=== PATIENT | female | born 1985 | race Two or more races ===

== ENCOUNTER 2020-03-18 23:58 | Emergency (ER) | payer SELFPAY ==
[~2020-03-18] VITALS: Ht 170.2 cm; Wt 68.0 kg
[2020-03-19] MEDS ORDERED: Albuterol 90mcg Inhaler 8gm INH ONE (00:45)
--- NOTE | 2020-03-19 00:45 | Emergency Room Report ---
History of Present Illness General Chief Complaint: Medical Clearance Source: Patient Present Illness HPI Disclaimer: Please note that this report is being documented using [employer] technology. This can lead to erroneous entry secondary to incorrect interpretation by the dictating instrument. HPI: 34-year-old female history of asthma presents for medical clearance prior to booking. She is reporting difficulty breathing. States she has chronic asthma and does not have her inhaler with her. She is requesting a temporary inhaler. Denies cough, fever or other complaints at this time. 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 EOMI. Resp: Normal work of breathing. No wheezing, no cough, no crackles, no rales. Skin: Intact. No abrasions, laceration or rash over the exposed skin MSK: Normal tone and bulk. Moving all extremities. No obvious deformity. Neuro: Awake and alert. Mentating appropriately Medical Decision Making Diagnostic Impression: Primary Impression: Asthma ER Course Is a 34-year-old female presenting for evaluation of medical clearance prior to booking. She is complaining of asthma and requesting a temporary inhaler. No evidence of severe asthma exacerbation at this time. Likely her baseline asthma and she is requesting a temporary inhaler. Will provide her with an MDI. No dictation for labs or imaging in the emergency department at this time. She will be discharged to police custody. Last Vital Signs Date Time Temp Pulse Resp B/P (MAP) Pulse Ox O2 Delivery O2 Flow Rate FiO2 03/19/20 00:06 97.9 89 20 133/78 (96) 99 Room Air Disposition: LAW ENFORCEMENT IN CUST Condition: Stable Referrals: [facility] Fab Vargas. [facility] Departure Forms: Correction Clearance Additional Instructions: Please follow-up with your primary care doctor in the next 1 to 3 days to discuss this emergency department visit and for reevaluation. If you have any new or worsening symptoms please return to the emergency department for reevalua tion. Please note that this report is being documented using [employer] technology. This can lead to erroneous entry secondary to incorrect interpretation by the dictating instrument. Fan Souza MD Mar 19, 2020 00:45
[2020-03-19 01:00] VITALS: BP 127/85
[2020-03-19 01:37] VITALS: BP 134/87
== END 2020-03-19 01:44 ==
LOC: EMR 03-19 00:10
DX: J45.909 Unspecified asthma, uncomplicated (principal); Z88.8 Allergy status to other drugs, medicaments and biological substances
CPT/HCPCS: 99283